=== PATIENT | female | born 1955 | race Caucasian/White ===

== ENCOUNTER 2017-11-05 08:52 | Emergency (ER) | payer BC ==
[~2017-11-05] VITALS: Ht 157.5 cm; Wt 94.2 kg
[~2017-11-05 08:52] MED LIST: LISINOPRIL5 MG PO; VITAMIN D-32000 UNI2 PO
[2017-11-05 09:32] LABS: HEMATOCRIT 38.2 % (36.0-46.0); HEMOGLOBIN 13.4 G/DL (11.9-15.5); MCH 29.3 PG (29.0-34.0); MCHC 35.1 G/DL (30.0-36.0); MCV 83.4 FL (83-99); PLATELET COUNT 199 K/uL (156-360); RBC DIS.WIDTH-CV 13.4 % (11.8-14.6); RBC DIS.WIDTH-SD 41.3 % (39-53); RED BLOOD COUNT 4.58 M/uL (3.80-5.20); WHITE BLOOD COUNT 10.5 K/uL (4.1-10.2)
[2017-11-05 09:46] LABS: ALBUMIN 4.4 g/dL (3.2-4.8)
[2017-11-05 09:47] LABS: CHLORIDE 109 mEq/L (99-109); POTASSIUM 4.8 mEq/L (3.7-5.4); SODIUM 139 mEq/L (136-147)
[2017-11-05 09:49] LABS: GLUCOSE 168 mg/dL (70-99); TOTAL PROTEIN 7.7 g/dL (6.4-8.3)
[2017-11-05 09:51] LABS: TOTAL BILIRUBIN 0.4 mg/dL (0.0-1.0)
[2017-11-05 09:52] LABS: ALKALINE PHOSPHATASE 99 IU/L (3-129)
[2017-11-05 09:53] LABS: CREATININE 0.8 mg/dL (0.6-1.3); GFR ESTIMATE (CALCULATED) > 59 mL/min/
[2017-11-05 09:54] LABS: AST (GOT) 20 IU/L (2-34); UREA NITROGEN (BUN) 22 mg/dL (9-23)
[2017-11-05 09:56] LABS: ALT (GPT) 43 IU/L (3-49)
[2017-11-05 11:25] LABS: APPEARANCE SL.HAZY ((CLEAR)); BILIRUBIN NEGATIVE; BLOOD LARGE; COLOR YELLOW ((YELLOW)); GLUCOSE (STRIP) NEGATIVE; KETONES NEGATIVE; LEUKOCYTES NEGATIVE; NITRITE NEGATIVE; PROTEIN (STRIP) 100; SPECIFIC GRAVITY 1.019 (1.000-1.030); UROBILINOGEN 0.2 MG/DL (0.2-1.0)
[2017-11-05 11:28] LABS: BACTERIA NONE SEEN /HPF; EPITHELIAL CELLS 1+ /HPF; MUCUS TRACE /LPF; RED BLOOD CELLS 30-40 /HPF (0-5); UCUL ADDED? NO; WHITE BLOOD CELLS 0-5 /HPF (0-5)
[2017-11-05] MEDS ORDERED: ZOFRAN ODT8 MG PO (15:01)
[2017-11-05] MEDS ORDERED: PERCOCET 5/31 TABLET PO (15:01)
[2017-11-05 15:49] VITALS: BP 136/65
== END 2017-11-05 15:54 | disposition home or self-care (01) ==
LOC: EME 08:52
DX: R31.9 Hematuria, unspecified (principal); R10.9 Unspecified abdominal pain; D17.71 Benign lipomatous neoplasm of kidney; I12.9 Hypertensive chronic kidney disease with stage 1 through stage 4 chronic kidney disease, or unspecified chronic kidney disease; N18.9 Chronic kidney disease, unspecified; K21.9 Gastro-esophageal reflux disease without esophagitis; Z90.710 Acquired absence of both cervix and uterus; Z88.0 Allergy status to penicillin; Z88.1 Allergy status to other antibiotic agents
CPT/HCPCS: 74177; 80053; 81003; 85027; 99281; 99285; J1200; J2405; J7030; J7512